=== PATIENT | male | born 1980 | race Caucasian/White ===

== ENCOUNTER 2018-01-08 19:02 | Emergency (ER) | payer OTHER ==
[2018-01-08 19:31] LABS: BILIRUBIN,URINE SMALL (NEG); CLARITY,URINE CLEAR; COLOR,URINE AMBER; GLUCOSE,URINE NEGATIVE (NEG); NITRITE,URINE NEGATIVE (NEG); PH,URINE 5.5; PROTEIN,URINE 30 mg/dL (NEG-TRACE)
[2018-01-08 19:37] LABS: BACTERIA,URINE 0 /HPF (0-FEW); HYALINE CASTS, URINE MODERATE /HPF; RBC,URINE OCC /HPF (0-2); SQUAMOUS EPITHELIAL CELL,UR FEW /LPF; WBC,URINE OCC /HPF (0-4)
[2018-01-08 19:40] LABS: AMPHETAMINE/METHAMPHETAMINE NEG (NEG); BARBITURATES NEG (NEG); BENZODIAZEPINES NEG (NEG); CANNABINOIDS NEG (NEG); COCAINE NEG (NEG); ETHANOL, URINE NEG (NEG); METHADONE NEG (NEG); OPIATES NEG (NEG); PHENCYCLIDINE NEG (NEG)
[2018-01-08] MEDS: ONDANSETRON PF 4 MG/2 ML VIAL. IV (19:55)
[2018-01-08] MEDS: IV NORMAL SALINE 1000ML BAG 1,000 ML IV (19:56)
[2018-01-08 19:57] LABS: ADD MAN DIFF? NO
[2018-01-08 19:59] LABS: BASO # 0.1 x10^3/uL (0.0-0.2); BASO % 1 % (0-3); EOS # 0.1 x10^3/uL (0.0-0.7); EOS % 1 % (0-3); HEMATOCRIT 43.3 % (39.0-53.0); HEMOGLOBIN 15.1 g/dL (13.0-17.5); LYMPH # 2.5 x10^3/uL (1.0-4.8); LYMPH % 27 % (24-48); MEAN CORPUSCULAR HEMOGLOBIN 31 pg (25-35); MEAN CORPUSCULAR HGB CONC 35 g/dL (31-37); MEAN CORPUSCULAR VOLUME 89 fL (79-100); MONO # 0.8 x10^3/uL (0.0-1.1); MONO % 9 % (0-9); NEUT # 5.9 x10^3uL (1.8-7.7); NEUT % 63 % (31-73); PLATELET COUNT 321 x10^3/uL (140-400); RED BLOOD COUNT 4.89 x10^6/uL (4.30-5.70); RED CELL DISTRIBUTION WIDTH 13.8 % (11.5-14.5); WHITE BLOOD COUNT 9.4 x10^3/uL (4.0-11.0)
[2018-01-08 20:06] LABS: ANION GAP 12 (6-14); BLOOD UREA NITROGEN 19 mg/dL (8-26); BUN/CREATININE RATIO 15 (6-20); CALCIUM 9.5 mg/dL (8.5-10.1); CARBON DIOXIDE 26 mmol/L (21-32); CHLORIDE 101 mmol/L (98-107); CREATININE 1.3 mg/dL (0.7-1.3); GFR 62.8; GLUCOSE 99 mg/dL (70-99); POTASSIUM 3.4 mmol/L (3.5-5.1); SODIUM 139 mmol/L (136-145)
[2018-01-08 20:10] LABS: ETHANOL < 10 mg/dL (0-10)
[2018-01-08 20:18] LABS: ALBUMIN 4.3 g/dL (3.4-5.0); ALK PHOS 93 U/L (46-116); ALT (SGPT) 57 U/L (16-63); AST (SGOT) 28 U/L (15-37); CREATINE KINASE 469 U/L (39-308); MYOGLOBIN 142 ng/mL (16-96); TOTAL BILIRUBIN 0.4 mg/dL (0.2-1.0); TOTAL PROTEIN 8.4 g/dL (6.4-8.2)
== END 2018-01-08 20:35 | disposition home or self-care (01) ==
LOC: ER 20:35
DX: E86.0 Dehydration (principal); M62.82 Rhabdomyolysis; I10 Essential (primary) hypertension
CPT/HCPCS: 36415; 74176; 80053; 80307; 81001; 82550; 83874; 85025; 96361; 96374; 99285-25; G0480; J2405; J7030